=== PATIENT | female | born 1985 | race Caucasian/White ===

== ENCOUNTER 2019-12-16 17:03 | Emergency (ER) | payer SELFPAY ==
[2019-12-16 17:10] VITALS: BP 138/87
[2019-12-16] MEDS ORDERED: ACETAMINOPHEN 325 MG TABLET PO ONE (17:31)
[2019-12-16] MEDS ORDERED: IBUPROFEN 600 MG TABLET PO ONE (17:31)
--- NOTE | 2019-12-16 17:32 | ER Document Report ---
HPI - HPI Time Seen by Provider: 12/16/19 17:26 Pain Level: 3 Context: Patient is a 34-year-old female who presents the emergency department with a chief complaint of left ankle pain. Patient states that she was walking yesterday and ended up falling and hurting her ankle. States that she has not been able to walk on it since then, other than going from her house to the car. Patient took 800 mg of ibuprofen last night and this morning. She has not had ibuprofen since this morning. Has not taken Tylenol because Tylenol has not been in stores due to COVID 19. - ROS Systems Reviewed and Negative: Yes All other systems reviewed and negative - NEURO Neurology: DENIES: Headache - CARDIOVASCULAR Cardiovascular: DENIES: Chest pain - RESPIRATORY Respiratory: DENIES: Trouble Breathing, Coughing - DERM Skin Color: Normal Skin Problems: None Past Medical History - General Information source: Patient - Social History Smoking Status: Never Smoker Family History: None Patient has suicidal ideation: No Patient has homicidal ideation: No Past Surgical History: Reports: Hx Breast Surgery - reduction, Hx Cholecystectomy - Immunizations Hx Diphtheria, Pertussis, Tetanus Vaccination: Yes - 2006 Vertical Provider Document - CONSTITUTIONAL Agree With Documented VS: Yes Exam Limitations: No Limitations General Appearance: No Apparent Distress - INFECTION CONTROL TRAVEL OUTSIDE OF THE [place] IN LAST 30 DAYS: No - HEENT HEENT: Atraumatic, Normocephalic, PERRLA - NECK Neck: Normal Inspection - RESPIRATORY Respiratory: No Respiratory Distress - CARDIOVASCULAR Cardiovascular: Regular Rate, Regular Rhythm Pulses: Normal: Posterior tibial, Dorsalis pedis - MUSCULOSKELETAL/EXTREMETIES Musculoskeletal/Extremeties: FROM, Tender - Left foot and ankle, Edema - Dorsal left foot, Eccymosis - Dorsal left foot - NEURO Level of Consciousness: Awake, Alert, Appropriate Motor/Sensory: No Motor Deficit, No Sensory Deficit - DERM Integumentary: Warm, Dry, No Rash Course - Re-evaluation Re-evalutation: 12/16/19 Patient's foot and ankle x-ray are negative for any acute fracture. Capillary refill less than 3 seconds. Dorsalis pedis and posterior tibial pulses 2+. Patient will be placed in Rusty wrap and in a postop shoe to help with comfort. She will also be given crutches. The primary RN gave the patient her paperwork before she received her Rusty wrap, crutches, and postop shoe and the patient walked away in the parking lot. I was able to track her down and bring her back to the emergency department so she can receive her paperwork. She states that she was upset because she did not receive any medication for pain other than ibuprofen and Tylenol. I told her that I can give her a [place] dose pack, if only she takes it at night. Verbal instructions on this were given at bedside. She is in agreement with this plan. She will follow-up with orthopedics in regards to this visit. All questions were answered. Follow-up precautions were given. Verbal discharge instructions were given to the patient. They verbalized understanding. They are stable for discharge. - Vital Signs Vital signs: Temp Pulse Resp BP Pulse Ox 98.1 F 78 16 138/87 H 98 12/16/19 17:08 12/16/19 17:08 12/16/19 17:08 12/16/19 17:08 12/16/19 17:08 Procedures - Immobilization Left Foot Pre-Proc Neuro Vasc Exam: Normal Immobilizer type: Rusty wrap, Crutches, Post-op shoe Performed by: PCT Post-Proc Neuro Vasc Exam: Normal, Unchanged from pre-exam Alignment checked and good: Yes Discharge - Discharge Clinical Impression: Left ankle pain Qualifiers: Chronicity: acute Qualified Code(s): M25.572 - Pain in left ankle and joints of left foot Condition: Stable Disposition: HOME, SELF-CARE Instructions: Use of Crutches ([facility]), Ice & Elevation ([facility]) Additional Instructions: You were seen today in the emergency department for left foot pain. Your x-rays are normal and do not show a fracture at this time. Please continue ibuprofen and Tylenol for pain relief. You can take 600 mg of ibuprofen and 1000 mg of Tylenol every 6 hours as needed for your pain. Please use crutches. Rest, apply ice, and elevate your foot. If you continue to have pain in 1 week, follow-up with orthopedics. Referrals: YAO VIRK JR, DO [ACTIVE PROVISIONAL STAFF] - Follow up as needed ELIU HARP MD [ACTIVE STAFF] - Follow up as needed LUIS ROJO MD [ACTIVE PROVISIONAL STAFF] - Follow up as needed [facility] [Provider Group] - Follow up as needed [facility] [Provider Group] - Follow up as needed
--- NOTE | 2019-12-16 18:19 | RADIOLOGY REPORT (SQ) ---
EXAM DESCRIPTION: ANKLE LEFT COMPLETE; FOOT LEFT COMPLETE COMPLETED DATE/TIME: 12/16/2019 5:53 pm REASON FOR STUDY: ankle pain; foot pain COMPARISON: None. FINDINGS: Three views left ankle: No bone, joint or soft tissue abnormality. Normal study. Three views left foot: No bone, joint or soft tissue abnormality. Normal study. TECHNICAL DOCUMENTATION: JOB ID: [id number] Reading location - IP/workstation name: [facility]
--- NOTE | 2019-12-16 18:19 | RADIOLOGY REPORT (SQ) ---
EXAM DESCRIPTION: ANKLE LEFT COMPLETE; FOOT LEFT COMPLETE COMPLETED DATE/TIME: 12/16/2019 5:53 pm REASON FOR STUDY: ankle pain; foot pain COMPARISON: None. FINDINGS: Three views left ankle: No bone, joint or soft tissue abnormality. Normal study. Three views left foot: No bone, joint or soft tissue abnormality. Normal study. TECHNICAL DOCUMENTATION: JOB ID: [id number] Reading location - IP/workstation name: [facility]
[2019-12-16] MEDS ORDERED: HYDROCODONE/ACETAMINOPHEN 5-325 MG (6 TAB/ER DISP) PO PRN (19:02)
== END 2019-12-16 19:24 | disposition home or self-care (01) ==
LOC: ER 17:03
DX: S90.32XA Contusion of left foot, initial encounter (principal); M25.572 Pain in left ankle and joints of left foot; R60.0 Localized edema; W19.XXXA Unspecified fall, initial encounter
CPT/HCPCS: 99283